=== PATIENT | female | born 1950 | race African-American/Black ===

== ENCOUNTER 2021-11-24 07:48 | Day surgery (SDC) | payer OTHER ==
[2021-11-19 14:11] VITALS: BMI 34.0
[2021-11-24] MEDS ORDERED: PROPOFOL 20 ML ONE ×4 (08:05)
[2021-11-24] MEDS ORDERED: LIDOCAINE HCL/PF 2% SDV 5ML VIAL ONE (08:06)
[2021-11-24 09:09] VITALS: PULSE 85; TEMP 97.4
[2021-11-24 09:23] VITALS: BP 115/83
== END 2021-11-24 09:34 | disposition home or self-care (01) ==
LOC: FASU-ENDO 07:48
PROVIDERS: ATTEND Internal Medicine Gastroenterology
PROC: 0DJD8ZZ Inspection of Lower Intestinal Tract, Via Natural or Artificial Opening Endoscopic (ICD-10-PCS; principal; 2021-11-24 08:34)
DX: Z86.010 Personal history of colon polyps (principal)